=== PATIENT | female | born 1965 | race Caucasian/White ===

== ENCOUNTER → 2024-01-03 | Outpatient (CLI) | payer OTHER ==
[~2024-01-03] MED LIST: GASTROGRAFIN SOLUTION 30ML ONE; ISOVUE-370 76% 100ML VIAL ONE
== END ==
LOC: M PLAIMG 08:20
PROVIDERS: ATTEND Internal Medicine
DX: C82.95 Follicular lymphoma, unspecified, lymph nodes of inguinal region and lower limb (principal); R16.2 Hepatomegaly with splenomegaly, not elsewhere classified

== ENCOUNTER → 2024-07-19 | Outpatient (CLI) | payer OTHER | LOC: M PLAIMG 07:57 | PROVIDERS: ATTEND Internal Medicine | DX: C82.95 Follicular lymphoma, unspecified, lymph nodes of inguinal region and lower limb (principal); K57.10 Diverticulosis of small intestine without perforation or abscess without bleeding; K40.90 Unilateral inguinal hernia, without obstruction or gangrene, not specified as recurrent; I70.0 Atherosclerosis of aorta; R16.0 Hepatomegaly, not elsewhere classified; R93.2 Abnormal findings on diagnostic imaging of liver and biliary tract | CPT/HCPCS: 74177; Q9963; Q9967 ==

== ENCOUNTER → 2024-09-18 | Outpatient (CLI) | payer OTHER | LOC: M PLARAD 14:10 | PROVIDERS: ATTEND Nurse Practitioner Family | DX: C82.95 Follicular lymphoma, unspecified, lymph nodes of inguinal region and lower limb (principal); R93.89 Abnormal findings on diagnostic imaging of other specified body structures; M79.9 Soft tissue disorder, unspecified | CPT/HCPCS: 78815; A9552 ==

== ENCOUNTER → 2024-12-19 | Outpatient (CLI) | payer OTHER | LOC: M PLARAD 14:13 | PROVIDERS: ATTEND Nurse Practitioner Family | DX: C82.95 Follicular lymphoma, unspecified, lymph nodes of inguinal region and lower limb (principal) | CPT/HCPCS: 78815; A9552 ==

== ENCOUNTER → 2025-06-11 | Outpatient (CLI) | payer OTHER | LOC: M PLARAD 08:07 | PROVIDERS: ATTEND Nurse Practitioner Family | DX: C82.95 Follicular lymphoma, unspecified, lymph nodes of inguinal region and lower limb (principal) | CPT/HCPCS: 78815; A9552 ==